=== PATIENT | male | born 1980 | race Caucasian/White ===

== ENCOUNTER 2018-07-01 09:20 | Emergency (ER) | payer BC, SELFPAY ==
[2018-07-01] MEDS ORDERED: Morphine 4 MG/ML VIAL ONE ×2 (09:37→10:25)
[2018-07-01] MEDS ORDERED: Ondansetron PF 4 MG/2 ML Vial ONE (09:37)
[2018-07-01 09:53] LABS: #Basophils 0.1 thou/uL (0.0-0.2); #Eosinphils 0.6 thou/uL (0.0-0.7); #Lymphocytes 2.4 thou/uL (1.20-3.40); #Monocytes 0.8 thou/uL (0.11-0.59); %Basophils 0.7 % (0.0-1.0); %Eosinophils 6.3 % (0.0-10.0); %Lymphocytes 24.4 % (21.0-51.0); %Monocytes 8.1 % (0.0-10.0); %Neutrophils 60.6 % (42.0-75.0); Mean Corpuscular HGB CONC 32.3 g/dL (32.0-36.0); Mean Corpuscular Volume 86.6 fL (78.0-98.0); Mean Platelet Volume 7.7 fL (7.4-10.4); Platelet Count 358 thou/uL (130-400); RBC Distribution Width 12.3 % (11.5-14.5); Red Blood Cell (RBC) Count 6.06 mill/uL (4.70-6.10); White Blood Cell (WBC) Count 9.9 thou/uL (4.8-10.8)
[2018-07-01] MEDS ORDERED: Iopamidol 370 76% 100 ML VIAL ONE (09:59)
[2018-07-01 10:17] LABS: ALT (SGPT) 72 U/L (8-55); AST (SGOT) 43 U/L (5-34); Albumin 4.7 g/dL (3.5-5.0); Alkaline Phosphatase 52 U/L (40-150); Anion Gap 13 mmol/L (10-20); BUN (Urea Nitrogen) 19 mg/dL (8.9-20.6); Bilirubin, Total 0.7 mg/dL (0.2-1.2); Calc. Creatinine Clearance 0 mL/min (70-130); Calcium 9.6 mg/dL (7.8-10.44); Carbon Dioxide 23 mmol/L (22-29); Chloride 106 mmol/L (98-107); Estimated GFR-MDRD 75; Globulin 3.3 g/dL (2.4-3.5); Glucose 138 mg/dL (70-105); Lipase 32 U/L (8-78); Potassium 4.2 mmol/L (3.5-5.1); Sodium 138 mmol/L (136-145)
[2018-07-01] MEDS ORDERED: Ketorolac Tromethamine 30 MG/ML VIAL ONE (10:25)
[2018-07-01] MEDS ORDERED: Tamsulosin HCl 0.4 MG CAP PO SCH (10:45)
--- NOTE | 2018-07-01 11:00 | CT ---
CT ABDOMEN AND PELVIS NONCONTRAST: History: Right lower quadrant pain, fever. FINDINGS: Minimal distention of the right renal collecting system to the level of a 0.4 cm calculus within the proximal right ureter. Smaller calcifications are present with a nondilated calices of each kidney. Lung bases are clear. Low density throughout the right liver lobe and the medial segment left liver l obe. The spleen, adrenal glands, and pancreas are unremarkable. Urinary bladder incompletely distende d. Lack of oral contrast limits evaluation of the bowel. No evidence of obstruction or inflammation. Tin y calcifications within a noninflamed appendix. IMPRESSION: 1. Partial obstruction at a 4 mm proximal right ureteral calculus. 2. Additional smaller nonobstructing bilateral renal calculi. 3. Hepatosteatosis. POS: CHERIH
== END 2018-07-01 11:32 | disposition home or self-care (01) ==
LOC: ERS 09:20
DX: N20.2 Calculus of kidney with calculus of ureter (principal); F98.8 Other specified behavioral and emotional disorders with onset usually occurring in childhood and adolescence; Z79.899 Other long term (current) drug therapy
CPT/HCPCS: 74177; 80053; 83690; 85025; 96361; 96374; 96375; 96376; J1885; J2270; J2405

== ENCOUNTER 2018-09-08 15:33 | Outpatient (CLI) | payer BC ==
--- NOTE | 2018-09-08 16:51 | ULT ---
THYROID ULTRASOUND: Date: 09/08/18 INDICATION: Possible thyroid nodule noted on palpation exam. FINDINGS: Both lobes of the thyroid show homogeneous echotexture. Thyroid lobes appear normal size. The right l obe measures 6.0 x 2.0 x 1.6 cm. The left lobe measures 5.4 x 1.8 x 1.4 cm. Isthmus measures 0.5 cm. No evidence of thyroid mass or nodule identified. IMPRESSION: Unremarkable thyroid ultrasound. POS: AMIARH
== END 2018-09-08 15:34 | disposition home or self-care (01) ==
LOC: BICULT 15:33
PROVIDERS: ATTEND Family Medicine
DX: E04.1 Nontoxic single thyroid nodule (principal)
CPT/HCPCS: 76536

== ENCOUNTER 2019-02-12 08:08 | Emergency (ER) | payer BC ==
[2019-02-12] MEDS ORDERED: Morphine 4 MG/ML VIAL ONE (08:41)
[2019-02-12] MEDS ORDERED: Ondansetron PF 4 MG/2 ML Vial ONE (08:41)
[2019-02-12 08:44] LABS: #Eosinphils 0.2 thou/uL (0.0-0.7); #Lymphocytes 1.4 thou/uL (1.20-3.40); #Monocytes 1.8 thou/uL (0.11-0.59); #Neutrophils 10.8 thou/uL (1.40-6.50); %Basophils 0.2 % (0.0-1.0); %Eosinophils 1.5 % (0.0-10.0); %Lymphocytes 9.7 % (21.0-51.0); %Monocytes 12.3 % (0.0-10.0); %Neutrophils 76.3 % (42.0-75.0); Hemoglobin 16.5 g/dL (14.0-18.0); Mean Corpuscular Hemoglobin 29.7 pg (27.0-31.0); Mean Corpuscular Volume 87.3 fL (78.0-98.0); Mean Platelet Volume 7.3 fL (7.4-10.4); Platelet Count 306 thou/uL (130-400); RBC Distribution Width 12.5 % (11.5-14.5); Red Blood Cell (RBC) Count 5.56 mill/uL (4.70-6.10); White Blood Cell (WBC) Count 14.2 thou/uL (4.8-10.8)
[2019-02-12 08:50] LABS: Bilirubin Negative (Negative); Blood, Urine Trace (Negative); Clarity CLEAR (Clear); Glucose, Urine (Dipstick) Negative (Negative); Leukocyte Negative (Negative); Nitrite Negative (Negative); Protein, Urine (Dipstick) Negative (Neg-Trace); Specific Gravity, Urine 1.015 (1.002-1.036); Urobilinogen 0.2 mg/dL (0.2-1.0); pH, Urine 6.5 (5.0-9.0)
[2019-02-12 08:52] LABS: Bacteria/HPF None Seen HPF (None Seen); Hyaline Casts/LPF 0-3 HYALINE CAST LPF (0-3 Hyaline); Pathc Cast-AUWi Flag 0.13 (0-2.49); Squamous Epithelial None Seen HPF (0-3); WBC/HPF 0-3 HPF (0-3)
--- NOTE | 2019-02-12 09:03 | CT ---
CT Stone Protocol History: Left flank pain Comparison: CT abdomen and pelvis June 2018 Findings: Lung bases are clear. No pericardial effusion. Diffuse hepatic steatosis of the right lobe the liver and the caudate sparing the left lobe of the li bandar. Nonobstructive 2 mm calculus superior pole right kidney. Nonobstructive 2 x 3 mm calculus interpolar right kidney. Nonobstructive punctate 1 mm calculus inferior left renal collecting system. There is low-grade left hydroureteronephrosis due to a 1 x 2 mm calculus left ureterovesicular juncti on on the bladder side of the junction. No dilated loops of large or small bowel. No retroperitoneal. Adenopathy. Noncontrast evaluation of t he spleen, pancreas, and adrenal glands unremarkable. No acute osseous abnormality Impression: Low-grade partially obstructive left ureterovesicular junction 1 x 2 mm calculus at the b ladder side of the UVJ.
[2019-02-12 09:14] LABS: ALT (SGPT) 44 U/L (8-55); AST (SGOT) 31 U/L (5-34); Albumin 4.5 g/dL (3.5-5.0); Alkaline Phosphatase 56 U/L (40-150); Anion Gap 13 mmol/L (10-20); BUN (Urea Nitrogen) 18 mg/dL (8.9-20.6); Bilirubin, Total 1.2 mg/dL (0.2-1.2); Calc. Creatinine Clearance 0 mL/min (70-130); Calcium 9.4 mg/dL (7.8-10.44); Carbon Dioxide 24 mmol/L (22-29); Chloride 101 mmol/L (98-107); Estimated GFR-MDRD 47; Globulin 3.2 g/dL (2.4-3.5); Glucose 101 mg/dL (70-105); Lipase 20 U/L (8-78); Potassium 4.2 mmol/L (3.5-5.1); Protein, Total 7.7 g/dL (6.0-8.3); Sodium 134 mmol/L (136-145)
== END 2019-02-12 10:29 | disposition home or self-care (01) ==
LOC: ERS 08:08
DX: N13.2 Hydronephrosis with renal and ureteral calculous obstruction (principal); F98.8 Other specified behavioral and emotional disorders with onset usually occurring in childhood and adolescence; Z79.899 Other long term (current) drug therapy
CPT/HCPCS: 74176; 80053; 81003; 81015; 83690; 85025; 87086; 96374; 96375; J2270; J2405

== ENCOUNTER 2021-02-26 09:21 | Emergency (ER) | payer BC | END 2021-02-26 11:32 | disposition home or self-care (01) | LOC: ERS 09:21 | DX: S52.045A Nondisplaced fracture of coronoid process of left ulna, initial encounter for closed fracture (principal); Z87.891 Personal history of nicotine dependence; Z79.899 Other long term (current) drug therapy; X58.XXXA Exposure to other specified factors, initial encounter | CPT/HCPCS: 24670 ==